=== PATIENT | female | born 1995 | race Caucasian/White ===

== ENCOUNTER 2024-11-13 13:11 | Emergency (ER) | payer MEDICAID ==
[~2024-11-13] VITALS: Ht 160 cm; Wt 67.0 kg
[2024-11-13 13:26] VITALS: TEMP 36.8; O2SAT 99
[2024-11-13] MEDS: LIDOCAINE HCL 1% 20ML VIAL INFIL ONE (15:00)
[2024-11-13] MEDS: TETANUS, DIPHTHERIA, PERTUSSIS VAC/PF 0.5ML (>10YR OLD) IM ONE (15:28)
[2024-11-13] MEDS ORDERED: BO1 TP (15:34)
[2024-11-13] MEDS: BACITRACIN ZINC OINT UDPKT TOP ONE (16:00)
[2024-11-13 16:17] VITALS: BP 103/63; PULSE 70; RESP 18; O2SAT 99
== END 2024-11-13 16:17 | disposition home or self-care (01) ==
LOC: ER 13:11
DX: S61.012A Laceration without foreign body of left thumb without damage to nail, initial encounter (principal); Z79.899 Other long term (current) drug therapy; Z98.890 Other specified postprocedural states; X58.XXXA Exposure to other specified factors, initial encounter; Y93.89 Activity, other specified; Y92.89 Other specified places as the place of occurrence of the external cause; Y99.8 Other external cause status
CPT/HCPCS: 99283; 81025; 90715; 12001; 90471; J2003

== ENCOUNTER 2024-11-20 11:25 | Emergency (ER) | payer MEDICAID ==
[~2024-11-20] VITALS: Ht 167.6 cm; Wt 61.0 kg
[~2024-11-20 11:25] MED LIST: BO1 TP
[2024-11-20 11:56] VITALS: TEMP 37.1; O2SAT 99
[2024-11-20 13:25] VITALS: BP 118/72; PULSE 69; RESP 18; O2SAT 100
== END 2024-11-20 13:37 | disposition home or self-care (01) ==
LOC: ER 12:23
DX: S61.012D Laceration without foreign body of left thumb without damage to nail, subsequent encounter (principal); Z98.890 Other specified postprocedural states; X58.XXXD Exposure to other specified factors, subsequent encounter
CPT/HCPCS: 99282